=== PATIENT | female | born 1965 | race Caucasian/White ===

== ENCOUNTER 2019-11-01 00:40 | Outpatient (CLI) | payer OTHER, SELFPAY ==
[2019-11-01 17:08] LABS: SARS-CoV-2 RNA PCR Negative
== END 2019-11-01 00:41 | disposition home or self-care (01) ==
LOC: ANHCOVIDDT 00:40
PROVIDERS: PCP Family Medicine; Visit Provider Internal Medicine Gastroenterology
DX: Z01.812 Encounter for preprocedural laboratory examination (principal); Z20.828 Contact with and (suspected) exposure to other viral communicable diseases
CPT/HCPCS: 87635; C9803; U0003

== ENCOUNTER 2019-11-04 00:40 | Day surgery (SDC) | payer OTHER, SELFPAY ==
[2019-10-24 14:48] VITALS: BMI 35.9
[2019-11-04] MEDS: LACTATED RINGERS 1,000 ML 150 ML IV CONT (06:53)
[2019-11-04 06:55] VITALS: BP 119/83; PULSE 75; RESP 16; TEMP 36.2; O2SAT 100; BMI 35.4
--- NOTE | 2019-11-04 07:44 | P.PNAN_ITS ---
Anes - Initial Pre Proc Eval Procedure: Operation Date: 11/04/19 08:00 Proposed Procedures p Screening Colonoscopy - Mario Vuong MD Date/Time: 11/04/19 07:44 Surgeon: Mario Vuong MD Pre Op Diagnosis: neoplasm screening, family hx colon polyps Patient Data Age: 54 Gender: F Height: 5 ft 5 in Weight: 96.5 kg Last Vital Signs Temp 97.1 F L 11/04/19 06:55 Pulse 75 11/04/19 06:55 Resp 16 11/04/19 06:55 BP 119/83 11/04/19 06:55 Pulse Ox 100 11/04/19 06:55 Allergies Allergy/AdvReac Type Severity Reaction Status Date / Time No Known Allergies Allergy Mild Verified 11/04/19 06:54 Home Medications Medication Instructions Recorded Confirmed Type lisinopril 10 mg PO DAILY 10/24/19 10/24/19 History Patient hx anesthesia problems: none Family hx anesthesia problems: none FOR[facility], [facility] Past Medical History Medical History (Updated 11/04/19 @ 07:44 by Medhat Livingston MD) Hypertension Social History Social History Living arrangements: with family Gender identity (if verbalized by the patient): Female Spiritual care concerns: No Anes - Eval Final PreProcedure Day of Procedure 11/04/19 07:44 Patient weight: overweight Heart: regular rate and rhythm Lungs: clear to auscultation Airway: Mallampati scale class II Neurological: alert and oriented Last oral intake: >/= 8 hours ASA classification: II Emergent: no Anesthetic plan: proceed Anesthesia type and monitoring: general GIVS and standard monitoring Informed Consent: The patient's anesthetic plan and its attendant risks and benefits were discussed with the patient/family/POA. Questions were solicited and answers provided to the satisfaction of the patient/family/POA.
--- NOTE | 2019-11-04 07:48 | P.CONGI_ITS ---
Assessment and Plan Assessment and plan (1) Family history of colonic polyps: Code(s): Z83.71 - Family history of colonic polyps Status: Acute Assessment and Plan: Patient's mother has had colon polyps. Patient will undergo screening colonoscopy at this time follow-up colonoscopies in 5-10 year intervals advised in the future. GI Consult Note Consult date/time: 11/04/19 07:48 HPI: Serenity Tsai is a 54 year old female Seen in evaluation at the request of Dr. Dom Giles. patient presents for screening colonoscopy. Patient states that her own weight appetite bowel movements are normal. She denies any blood in her stools. Her weight has remained stable. Family history is significant that her mother has had colon polyps. Review of Systems Review of Systems: All systems reviewed & are unremarkable except as noted in HPI and below PMFSH Past Medical History Medical History Hypertension Social History Social History Living arrangements: with family Gender identity (if verbalized by the patient): Female Spiritual care concerns: No Meds Home Medications and Allergies Home Medications Medication Instructions Recorded Confirmed Type lisinopril 10 mg PO DAILY 10/24/19 10/24/19 History Allergies Allergy/AdvReac Type Severity Reaction Status Date / Time No Known Allergies Allergy Mild Verified 11/04/19 06:54 Vital Signs Vital Signs - 24 hr 11/04/19 06:55 Temperature 97.1 F L Pulse Rate 75 Respiratory Rate 16 Blood Pressure 119/83 Pulse Oximetry 100 Exam Narrative: Exam Narrative: Physical exam reveals patient to be alert. Vital signs stable. HEENT exam unremarkable. Patient is anicteric. Lungs are clear to auscultation and percussion. Heart is without murmur or extra sounds. Abdominal exam bowel sounds are present soft nontender with no organomegaly. Di gital external rectal exam normal.
[2019-11-04 08:11] VITALS: BP 101/65; PULSE 68; RESP 16; O2SAT 97
[2019-11-04 08:21] VITALS: BP 106/66; PULSE 61; RESP 16; O2SAT 97
[2019-11-04 08:31] VITALS: BP 108/68; PULSE 60; RESP 14; O2SAT 98
== END 2019-11-04 08:46 | disposition home or self-care (01) ==
PROVIDERS: PCP Physician Assistant; Visit Provider Internal Medicine Gastroenterology
PROC: 0DJD8ZZ Inspection of Lower Intestinal Tract, Via Natural or Artificial Opening Endoscopic (ICD-10-PCS; CPT 45378; principal; 2019-11-04 08:00)
DX: Z12.11 Encounter for screening for malignant neoplasm of colon (principal); K64.8 Other hemorrhoids; Z83.71 Family history of colonic polyps; I10 Essential (primary) hypertension
CPT/HCPCS: 45378; J2704; J7120

== ENCOUNTER 2020-07-21 16:01 | Outpatient (CLI) | payer OTHER, SELFPAY ==
--- NOTE | ~2020-07-21 | MM_ITS ---
EXAMINATION: MM screening [facility] BI w estephanie HISTORY: Screening mammogram TECHNIQUE: Craniocaudal and mediolateral oblique 3-D tomosynthesis images were obtained and synthetic 2-D images were generated. CAD analysis was submitted and interpreted. COMPARISON: 12/07/2016, 03/05/2013 bilateral digital screening mammogram examinations BREAST PARENCHYMAL COMPOSITION: There are scattered areas of fibroglandular density. FINDINGS: A new asymmetry in the posterior outer left breast on CC projection. Diagnostic left mammog kahlil is recommended with ultrasound if required. Stable bilateral asymmetries are noted otherwise. There is no evidence of suspicious mass otherwise, calcification, or architectural distortion to suggest malignancy in either breast. There has been no other suspicious interval change. IMPRESSION: 1. New asymmetry suggested in posterior outer left breast on CC projection 2. Diagnostic left mammogram is recommended, with ultrasound if required BI-RADS Category 0: Incomplete: Needs additional imaging evaluation. Reviewed, dictated and finalized at location A.
== END 2020-07-21 16:02 | disposition home or self-care (01) ==
LOC: ANHIMG 16:05
PROVIDERS: PCP Physician Assistant; Visit Provider Physician Assistant
DX: Z12.31 Encounter for screening mammogram for malignant neoplasm of breast (principal); R92.8 Other abnormal and inconclusive findings on diagnostic imaging of breast
CPT/HCPCS: 77063; 77067

== ENCOUNTER 2020-08-18 11:42 | Outpatient (CLI) | payer OTHER, SELFPAY ==
--- NOTE | ~2020-08-18 | MM_ITS ---
EXAMINATION: MM diagnostic mammo unilat LT HISTORY: Left breast asymmetry on screening mammogram TECHNIQUE: Additional 3-D tomosynthesis images of the left breast were performed and synthetic 2-D im ages were generated. CAD analysis was submitted and interpreted. COMPARISON: 07/21/2020,12/07/2016, 03/05/2013 FINDINGS: There is a return to baseline fibroglandular appearance with spot compression of the left b reast in the area questioned on screening mammogram. IMPRESSION: 1. No mammographic evidence of malignancy. 2. Recommend routine screening mammography in one year. BI-RADS Category 1: Negative Reviewed, dictated and finalized at location A.
== END 2020-08-18 11:43 | disposition home or self-care (01) ==
PROVIDERS: PCP Physician Assistant; Visit Provider Physician Assistant
DX: N64.89 Other specified disorders of breast (principal)
CPT/HCPCS: 77065

== ENCOUNTER 2021-03-26 14:38 | Outpatient (CLI) | payer OTHER, SELFPAY ==
--- NOTE | ~2021-03-26 | XR_ITS ---
XR shoulder RT min 2V DATE: 03/26/2021 15:13 INDICATION: Pulling injury of right shoulder 2 weeks ago. Pain. Adhesive capsulitis. TECHNIQUE: 4 views COMPARISON: None FINDINGS: No fracture or dislocation, periosteal reaction or bone destruction or abnormal soft tissue calcification. IMPRESSION: No significant radiographic abnormality of right shoulder Reviewed, dictated and finalized at location A. ESSMAKER
== END 2021-03-26 14:39 | disposition home or self-care (01) ==
LOC: ANHIMG 14:43
PROVIDERS: PCP Physician Assistant; Visit Provider Physician Assistant
DX: M75.01 Adhesive capsulitis of right shoulder (principal)
CPT/HCPCS: 73030

== ENCOUNTER 2021-05-10 09:22 | Outpatient (CLI) | payer OTHER, SELFPAY ==
--- NOTE | ~2021-05-10 | XR_ITS ---
EXAMINATION: XR lg joint inject/asp w image DATE: 05/10/2021 10:10 INDICATION: Adhesive capsulitis of right shoulder. TECHNIQUE: A time-out was performed to verify the patient's name, date of , and procedure to b e performed. The procedure including the risks, benefits, and alternatives was discussed with the pat ient. Risks discussed included bleeding and infection. The patient understood the risks and agreed to proceed. The skin overlying the right glenohumeral joint was prepped and draped in usual sterile fa shion. Anesthetic was administered with 1% lidocaine subcutaneously. A 22 G needle was advanced und er fluoroscopic guidance into the joint. Injection of 1 mL of Omnipaque 240 confirmed intra-articula r position of the needle. Subsequently, injectate consisting of 3 mL 1% lidocaine and 1 mL 40 mg/mL triamcinolone was instilled. The needle was removed and the entry site was cleaned and dressed. The re were no immediate complications. Fluoroscopy exposure time was 0.1 minutes. The total number of im ages was 2. FINDINGS: Real-time fluoroscopy demonstrates the needle in the right glenohumeral joint. Patient's pa in prior to procedure:4/10. Patient's pain following the procedure: 0/10. IMPRESSION: 1. Fluoroscopy guided right glenohumeral joint injection of local anesthetic and steroid with decreas e in the patient's presenting pain. Reviewed, dictated and finalized at location A. IMPRESSION: 1. Fluoroscopy guided right glenohumeral joint injection of local anesthetic an d steroid with decrease in the patient's presenting pain.
== END 2021-05-10 09:23 | disposition home or self-care (01) ==
PROVIDERS: PCP Physician Assistant; Visit Provider Physician Assistant
DX: M25.511 Pain in right shoulder (principal)
CPT/HCPCS: 20610; 77002; J3301; Q9966

== ENCOUNTER 2023-05-15 14:02 | Outpatient (CLI) | payer OTHER, SELFPAY ==
--- NOTE | ~2023-05-15 | MM_ITS ---
EXAMINATION: MM screening [facility] BI w estephanie HISTORY: Screening TECHNIQUE: Craniocaudal and mediolateral oblique 3-D tomosynthesis images were obtained and synthetic 2-D images were generated. CAD analysis was submitted and interpreted. COMPARISON: Comparison to multiple prior studies sequentially, with oldest reviewed study dated 11/14. BREAST PARENCHYMAL COMPOSITION: Not dense: There are scattered areas of fibroglandular density. FINDINGS: Bilateral breast asymmetries are stable. There is no evidence of suspicious mass, calcifica tion, or architectural distortion to suggest malignancy in either breast. There has been no suspiciou s interval change. IMPRESSION: 1. No mammographic evidence of malignancy. 2. Recommend routine screening mammography in one year. BI-RADS Category 2: Benign finding(s). Reviewed, dictated and finalized at location A.
== END 2023-05-15 14:03 | disposition home or self-care (01) ==
LOC: ANHIMG 14:04
PROVIDERS: PCP Family Medicine; Visit Provider Physician Assistant
DX: Z12.31 Encounter for screening mammogram for malignant neoplasm of breast (principal)
CPT/HCPCS: 77063; 77067